=== PATIENT | female | born 1970 | race Caucasian/White ===

== ENCOUNTER → 2023-12-20 10:36 | Outpatient (REF) | payer OTHER, SELFPAY | LOC: HWRAD 10:36 | PROVIDERS: ATTENDING PHYSICIAN Family Medicine | DX: M54.50 Low back pain, unspecified (principal); M54.2 Cervicalgia | CPT/HCPCS: 72052; 72110 ==

== ENCOUNTER → 2024-04-30 09:12 | Outpatient (REF) | payer OTHER, SELFPAY | LOC: HWWDC 09:12 | PROVIDERS: ATTENDING PHYSICIAN Family Medicine | DX: Z12.31 Encounter for screening mammogram for malignant neoplasm of breast (principal) | CPT/HCPCS: 77063; 77067 ==

== ENCOUNTER → 2024-07-31 14:42 | Outpatient (REF) | payer OTHER, SELFPAY | LOC: WDC 14:42 | PROVIDERS: ATTENDING PHYSICIAN Family Medicine | DX: R92.30 Dense breasts, unspecified (principal) | CPT/HCPCS: 76641 ==

== ENCOUNTER → 2024-11-21 16:43 | Outpatient (REF) | payer OTHER, SELFPAY | LOC: HWRAD 16:43 | PROVIDERS: ATTENDING PHYSICIAN Family Medicine | DX: M79.641 Pain in right hand (principal); M79.642 Pain in left hand | CPT/HCPCS: 73130 ==

== ENCOUNTER 2024-12-25 06:15 | Outpatient (RCR) | payer OTHER, SELFPAY | END 2024-12-25 23:59 | disposition home or self-care (01) | LOC: ROT 06:15 | PROVIDERS: ATTENDING PHYSICIAN Family Medicine | DX: M79.642 Pain in left hand (principal); M79.641 Pain in right hand; Z73.6 Limitation of activities due to disability | CPT/HCPCS: 97018; 97166; 97535 ==

== ENCOUNTER 2025-01-24 16:21 | Outpatient (RCR) | payer OTHER, SELFPAY | END 2025-01-24 23:59 | disposition home or self-care (01) | LOC: ROT 16:21 | PROVIDERS: ATTENDING PHYSICIAN Family Medicine | DX: M79.642 Pain in left hand (principal); M79.641 Pain in right hand; Z73.6 Limitation of activities due to disability; M65.4 Radial styloid tenosynovitis [de Quervain] | CPT/HCPCS: 97018; 97035; 97110; 97140 ==

== ENCOUNTER 2025-02-12 17:12 | Outpatient (RCR) | payer OTHER, SELFPAY | END 2025-02-12 23:59 | disposition home or self-care (01) | LOC: ROT 17:12 | PROVIDERS: ATTENDING PHYSICIAN Family Medicine | DX: M79.642 Pain in left hand (principal); M79.641 Pain in right hand; Z73.6 Limitation of activities due to disability; M65.4 Radial styloid tenosynovitis [de Quervain] | CPT/HCPCS: 97018; 97035; 97110; 97140 ==

== ENCOUNTER → 2025-02-18 07:48 | Outpatient (REF) | payer OTHER, SELFPAY | LOC: EMG 07:48 | PROVIDERS: ATTENDING PHYSICIAN Orthopaedic Surgery Hand Surgery; FAMILY PHYSICIAN Family Medicine | DX: M79.642 Pain in left hand (principal); R20.0 Anesthesia of skin | CPT/HCPCS: 95886; 95909 ==

== ENCOUNTER 2025-04-01 09:24 | Outpatient (RCR) | payer OTHER, SELFPAY | END 2025-04-01 23:59 | disposition home or self-care (01) | LOC: ROT 09:24 | PROVIDERS: ATTENDING PHYSICIAN Family Medicine | DX: M79.642 Pain in left hand (principal); M79.641 Pain in right hand; Z73.6 Limitation of activities due to disability; M65.4 Radial styloid tenosynovitis [de Quervain] | CPT/HCPCS: 97018; 97035; 97110; 97140 ==

== ENCOUNTER → 2025-04-23 07:43 | Outpatient (REF) | payer OTHER, SELFPAY | LOC: EMG 07:43 | PROVIDERS: ATTENDING PHYSICIAN Orthopaedic Surgery Hand Surgery; FAMILY PHYSICIAN Family Medicine | DX: M25.531 Pain in right wrist (principal) | CPT/HCPCS: 95886; 95909 ==

== ENCOUNTER → 2025-04-23 14:55 | Outpatient (REF) | payer OTHER, SELFPAY | LOC: HWRAD 14:55 | PROVIDERS: ATTENDING PHYSICIAN Family Medicine | DX: M25.561 Pain in right knee (principal); M25.562 Pain in left knee; M25.571 Pain in right ankle and joints of right foot; M25.572 Pain in left ankle and joints of left foot; M79.671 Pain in right foot; M79.672 Pain in left foot | CPT/HCPCS: 73564; 73610; 73630 ==

== ENCOUNTER 2025-07-02 16:01 | Outpatient (RCR) | payer OTHER, SELFPAY | END 2025-07-02 23:59 | disposition home or self-care (01) | LOC: ROT 16:01 | PROVIDERS: ATTENDING PHYSICIAN Physician Assistant Surgical; FAMILY PHYSICIAN Family Medicine | DX: Z47.89 Encounter for other orthopedic aftercare (principal); G56.03 Carpal tunnel syndrome, bilateral upper limbs; Z73.6 Limitation of activities due to disability; M62.81 Muscle weakness (generalized) | CPT/HCPCS: 97018; 97035; 97110; 97140; 97166; 97535; 97760 ==

== ENCOUNTER 2025-08-01 16:42 | Outpatient (RCR) | payer OTHER, SELFPAY | END 2025-08-01 23:59 | disposition home or self-care (01) | LOC: ROT 16:42 | PROVIDERS: ATTENDING PHYSICIAN Physician Assistant Surgical; FAMILY PHYSICIAN Family Medicine | DX: Z47.89 Encounter for other orthopedic aftercare (principal); G56.03 Carpal tunnel syndrome, bilateral upper limbs; Z73.6 Limitation of activities due to disability; M62.81 Muscle weakness (generalized) | CPT/HCPCS: 97010; 97018; 97022; 97035; 97110; 97140; 97760 ==

== ENCOUNTER 2025-08-20 11:51 | Outpatient (RCR) | payer OTHER, SELFPAY | END 2025-08-20 23:59 | disposition home or self-care (01) | LOC: ROT 11:51 | PROVIDERS: ATTENDING PHYSICIAN Physician Assistant Surgical; FAMILY PHYSICIAN Family Medicine | DX: Z47.89 Encounter for other orthopedic aftercare (principal); G56.03 Carpal tunnel syndrome, bilateral upper limbs; Z73.6 Limitation of activities due to disability; M62.81 Muscle weakness (generalized) | CPT/HCPCS: 97018; 97022; 97110; 97140 ==

== ENCOUNTER 2025-09-03 16:14 | Outpatient (RCR) | payer OTHER, SELFPAY | END 2025-09-03 23:59 | disposition home or self-care (01) | LOC: ROT 16:14 | PROVIDERS: ATTENDING PHYSICIAN Physician Assistant Surgical; FAMILY PHYSICIAN Family Medicine | DX: Z47.89 Encounter for other orthopedic aftercare (principal); G56.03 Carpal tunnel syndrome, bilateral upper limbs; Z73.6 Limitation of activities due to disability; M62.81 Muscle weakness (generalized) | CPT/HCPCS: 97018; 97110; 97140 ==